=== PATIENT | male | born 1980 | race African-American/Black ===

== ENCOUNTER 2017-08-13 02:03 | Emergency (ER) | payer OTHER ==
[2017-08-13 02:08] VITALS: BP 154/83; PULSE 88; TEMP 98.6; BMI 34.9
--- NOTE | 2017-08-13 02:22 | PDOC ---
History of Present Illness - General Chief Complaint: Sore Throat Stated Complaint: THROAT/R EAR PAIN Time Seen by Provider: 08/13/17 02:09 - History of Present Illness Initial Comments: This otherwise healthy 37-year-old man presents with a few day history of sore throat/bodyaches/nonproductive cough/subjective fever. Tonight, just prior to presentation he swabbed out his ear canals after taking a shower. He developed pain in the right ear after this. There was no bleeding or discharge from the ear. Denies any foreign body in the ear; no previous history of otitis externa. Patient states that both his and daughter have been ill in the last week with treated with Tamiflu. Daughter also had a significant sore throat although he was unsure if the ch child was treated with Tamiflu. Patient himself has had strep pharyngitis in the last year. Past History - Past Medical History Allergies/Adverse Reactions: Allergies Allergy/AdvReac Type Severity Reaction Status Date / Time No Known Allergies Allergy Verified 09/18/15 00:11 Home Medications: Ambulatory Orders Naproxen [Naprosyn -] 500 mg PO BID #14 tablet 09/06/15 traMADol HCL [Ultram -] 50 mg PO Q6H #20 tablet 09/18/15 COPD: No Thyroid Disease: No - Immunization History Immunization Up to Date: Yes - Suicide/Smoking/Psychosocial Hx Smoking Status: No Smoking History: Unknown if ever smoked Have you smoked in the past 12 months: No Number of Cigarettes Smoked Daily: 0 Cigars Per Day: 0 Information on smoking cessation initiated: No Hx Alcohol Use: No Drug/Substance Use Hx: No Substance Use Type: None Review of Systems - Review of Systems Able to Perform ROS?: Yes Comments:: 12 point review of systems is negative except for what is noted in the history of present illness *Physical Exam - Vital Signs Last Vital Signs Temp Pulse Resp BP Pulse Ox 98.6 F 88 14 154/83 99 08/13/17 02:06 08/13/17 02:06 08/13/17 02:06 08/13/17 02:06 08/13/17 02:06 - Physical Exam Comments: GENERAL: Adult male, [place] oriented 3, in no acute distress HEAD: Normal with no signs of trauma. EYES: PERRLA, EOMI, sclera anicteric, conjunctiva clear. ENT: Right ear. Moderately erythematous/edematous canal with scaly residue; TM partially visualized and does not appear to be erythematous or dull Left ear-normal canal and TM Pharynx moderately erythematous with scattered small areas of exudate NECK: Normal range of motion, supple without lymphadenopathy, JVD, or masses. LUNGS: Breath sounds equal, clear to auscultation bilaterally. No wheezes, and no crackles. HEART:Regular rate and rhythm, normal S1 and S2 without murmur, rub or gallop. SKIN: Warm, Dry, normal turgor, no rashes or lesions noted. Medical Decision Making - Medical Decision Making This 37-year-old otherwise healthy man presents with right ear pain after having upper respiratory infection/pharyngitis/fever for a few days. On exam, there is evidence of acute otitis externa on the right side without other abnormalities except acute pharyngitis. Because patient has had strep throat as an adult quick strep/throat culture will be sent. The patient's was treated with Tamiflu for presumed influenza last week; nasopharyngeal swab for rapid influenza test will be sent Meanwhile, 4 drops of Corticosporin otic suspension placed in the right ear. The patient will continue this 4 times a day for one week. He will be referred to Dr. Timothy robles for ENT follow-up. Patient will be contacted if either his quick strep/throat culture or influenza swab is positive. He should return to the ER if he Has worsening pain or develops fever/ difficulty breathing *DC/Admit/Observation/Transfer Diagnosis at time of Disposition: Acute otitis externa of right ear Qualifiers: Otitis externa type: other infective Qualified Code(s): H60.391 - Other infective otitis externa, right ear Pharyngitis Qualifiers: Pharyngitis/tonsillitis etiology: unspecified etiology Qualified Code(s): J02.9 - Acute pharyngitis, unspecified - Discharge Dispostion Disposition: HOME Condition at time of disposition: Good - Referrals Referrals: Raj Aguirre MD [Staff Physician] - - Patient Instructions Printed Discharge Instructions: DI for Otitis Externa Additional Instructions: Cortisporin suspension drops: 4 drops in right ear 4 times a day for 1 week Ibuprofen/naproxen/acetaminophen as needed for pain Decongestant/antihistamine as needed for nasal congestion/ear pain Drink plenty of fluids Follow-up with ENT group (Dr. Aguirre) if you have persistent pain in your ear Medications will be called into your pharmacy if strep or influenza test is positive - Post Discharge Activity
[2017-08-13] MEDS ORDERED: IBUPROFEN 600 MG TABLET (FP) PO ONE (02:33)
== END 2017-08-13 02:46 | disposition home or self-care (01) ==
LOC: FER 02:03
DX: H60.391 Other infective otitis externa, right ear (principal); J02.9 Acute pharyngitis, unspecified
CPT/HCPCS: 87070; 87077; 87430; 87804; 99282-25

== ENCOUNTER 2020-06-13 15:25 | Emergency (ER) | payer OTHER ==
[2020-06-13] MEDS ORDERED: LIDOCAINE 5% TOPICAL PATCH TP ONE (15:28)
[2020-06-13 15:36] VITALS: BP 135/84; PULSE 85; TEMP 99; BMI 35.2
[2020-06-13] MEDS ORDERED: IBUPROFEN 600 MG TABLET (FP) PO ONE ×2 (15:39→15:46)
[2020-06-13] MEDS ORDERED: LIDOCAINE 5% TOPICAL PATCH ONE (15:46)
== END 2020-06-13 17:45 | disposition home or self-care (01) ==
LOC: FER 15:25
DX: M54.5 Low back pain (principal)
CPT/HCPCS: 72100-TC-FY; 99283-25